=== PATIENT | female | born 1980 | race African-American/Black ===

== ENCOUNTER 2023-03-10 17:02 | Emergency (ER) | payer MEDICARE ==
[2023-03-10] MEDS ORDERED: HYDROcodone/Acetaminophen 5/325 mg Tablet ONE (17:36)
[2023-03-10] MEDS ORDERED: predniSONE 20 MG TAB ONE (17:36)
== END 2023-03-10 17:44 | disposition home or self-care (01) ==
LOC: BURERS 17:02
DX: M54.41 Lumbago with sciatica, right side (principal); I12.0 Hypertensive chronic kidney disease with stage 5 chronic kidney disease or end stage renal disease; N18.6 End stage renal disease; Z99.2 Dependence on renal dialysis; Z79.899 Other long term (current) drug therapy
CPT/HCPCS: J7512

== ENCOUNTER 2023-05-22 11:19 | Emergency (ER) | payer MEDICARE | END 2023-05-22 12:40 | disposition home or self-care (01) | LOC: BURERS 11:19 | DX: M25.562 Pain in left knee (principal); I12.0 Hypertensive chronic kidney disease with stage 5 chronic kidney disease or end stage renal disease; N18.6 End stage renal disease; Z99.2 Dependence on renal dialysis; Z79.899 Other long term (current) drug therapy ==

== ENCOUNTER 2023-12-10 13:39 | Emergency (ER) | payer MEDICARE | END 2023-12-10 14:35 | disposition home or self-care (01) | LOC: BURERS 13:39 | DX: S83.412A Sprain of medial collateral ligament of left knee, initial encounter (principal); I12.0 Hypertensive chronic kidney disease with stage 5 chronic kidney disease or end stage renal disease; N18.6 End stage renal disease; X58.XXXA Exposure to other specified factors, initial encounter; Z99.2 Dependence on renal dialysis ==